=== PATIENT | male | born 2000 | race Caucasian/White ===

== ENCOUNTER 2024-07-05 05:19 | Emergency (ER) | payer SELFPAY ==
[2024-07-05 05:39] VITALS: PULSE 65; O2SAT 100
== END 2024-07-05 06:30 | disposition left against medical advice (07) ==
LOC: ER 05:19
DX: K08.89 Other specified disorders of teeth and supporting structures (principal); Z53.21 Procedure and treatment not carried out due to patient leaving prior to being seen by health care provider